=== PATIENT | male | born 1980 | race American Indian/Alaskan Native ===

== ENCOUNTER 2016-12-19 16:21 | Emergency (ER) | payer SELFPAY ==
[2016-12-19] MEDS ORDERED: MOTRIN PO ONE (19:04)
[2016-12-19] MEDS ORDERED: XYLOCAINE 1% 20 mL INFILTRATI ONE (19:04)
--- NOTE | 2016-12-19 19:16 | Emergency Department Report ---
ED Extremity Problem HPI - General Chief complaint: Extremity Injury, Upper Stated complaint: RIGHT LITTLE FINGER INJURY Time Seen by Provider: 12/19/16 18:57 Source: patient Mode of arrival: Ambulatory Limitations: No Limitations - History of Present Illness Initial comments: PT c/o R 5th finger injury. PT states the injury occurred [employer]. PT stats he was playing basketball. PT states his finger is bent and he can not move it. PT states he did not have time to take anything for the pain. PT states his pain is 10/10 MD Complaint: joint paint -: Sudden, hour(s) Location: right, upper extremity (5th finger ) History of Same: No Severity scale (0 -10): 10 Quality: constant Consistency: constant Improves with: nothing Worsens with: palpation Associated Symptoms: denies other symptoms - Related Data Previous Rx's Medication Instructions Recorded Last Taken Type Acetaminophen/Codeine [Tylenol #3] 1 tab PO Q6H PRN #12 tab 12/19/16 Unknown Rx Ibuprofen [Motrin] 600 mg PO Q8H PRN #15 tablet 12/19/16 Unknown Rx Allergies Allergy/AdvReac Type Severity Reaction Status Date / Time No Known Allergies Allergy Verified 12/19/16 18:03 ED Review of Systems ROS: Stated complaint: RIGHT LITTLE FINGER INJURY Other details as noted in HPI Comment: All other systems reviewed and negative Constitutional: denies: fever Cardiovascular: denies: chest pain Gastrointestinal: denies: abdominal pain, nausea, vomiting Musculoskeletal: as per HPI Neurological: denies: headache ED Past Medical Hx - Past Medical History Previous Medical History?: No - Surgical History Past Surgical History?: No - Social History Smoking Status: Never Smoker Substance Use Type: None - Medications Home Medications: Home Medications Medication Instructions Recorded Confirmed Last Taken Type Acetaminophen/Codeine [Tylenol #3] 1 tab PO Q6H PRN #12 tab 12/19/16 Unknown Rx Ibuprofen [Motrin] 600 mg PO Q8H PRN #15 tablet 12/19/16 Unknown Rx ED Physical Exam - General Limitations: No Limitations General appearance: alert, in no apparent distress - Head Head exam: Present: atraumatic, normocephalic, normal inspection - Eye Eye exam: Present: normal appearance, PERRL, EOMI. Absent: conjunctival injection - ENT ENT exam: Present: normal exam, mucous membranes moist, normal external ear exam - Neck Neck exam: Present: normal inspection, full ROM - Respiratory Respiratory exam: Present: normal lung sounds bilaterally. Absent: respiratory distress - Cardiovascular Cardiovascular Exam: Present: regular rate, normal rhythm, normal heart sounds - Extremities Exam Extremities exam: Present: tenderness. Absent: normal inspection, full ROM - Expanded Upper Extremity Exam Right Hand Wrist exam: Present: deformity (distal R 5th finger tip ), other (pt guarding R hand. ). Absent: normal inspection, full ROM (pt unable to extend R 5th finger ), amputation, nail avulsion, subungual hematoma Vascular: Absent: vascular compromise - Back Exam Back exam: Present: normal inspection, full ROM - Neurological Exam Neurological exam: Present: alert, oriented X3 - Psychiatric Psychiatric exam: Present: normal affect, normal mood - Skin Skin exam: Present: warm, dry, intact ED Course Vital Signs 12/19/16 12/19/16 18:04 21:34 Temperature 99.4 F Pulse Rate 73 72 Respiratory 16 18 Rate Blood Pressure 119/78 Blood Pressure 143/74 [Left] O2 Sat by Pulse 100 100 Oximetry - Reevaluation(s) Reevaluation #1: 12/19/16 19:29 due to pt's pain. digital block performed prior to evaluation of R 5th finger. - Nerve Block Consent Obtained: verbal consent Amount of anesthesia used: 3 (mls) Side: right Nerve Blocks: digital Procedure Successful: Yes Complications: none Patient Tolerated Procedure: well - Orthopedic Splinting/Casting Injury #1 Side: right Upper Extremity Injury Location: finger (5th finger ) Upper Extremity Immobilizer: finger (other) (baseball splint placed on R 5th finger ) - Pulse Oximetry Interpretation Digit-Finger Initial Pulse Oximetry Readin Actions Taken: none ED Medical Decision Making - Differential Diagnosis fx, dislocation, contusion Critical Care Time: No Critical care attestation.: If time is entered above; I have spent that time in minutes in the direct care of this critically ill patient, excluding procedure time. ED Disposition Clinical Impression: Finger strain Injury of finger Qualifiers: Encounter type: initial encounter Laterality: right Qualified Code(s): S69.91XA - Unspecified injury of right wrist, hand and finger(s), initial encounter Disposition: TO HOME OR SELFCARE Is pt being admited?: No Does the pt Need Aspirin: No Condition: Stable Instructions: Trigger Finger (ED), Finger Sprain (ED) Additional Instructions: Wear your splint when up and active No driving or alcohol after taking Tylenol #3 for pain You likely damage the tendon that helps you extend your finger. You will need to follow up with an orthopedic surgeon. Prescriptions: Acetaminophen/Codeine [Tylenol #3] 1 tab PO Q6H PRN #12 tab PRN Reason: Pain , Severe (7-10) Ibuprofen [Motrin] 600 mg PO Q8H PRN #15 tablet PRN Reason: Pain Referrals: PRIMARY CARE, [Primary Care Provider] - 3-5 Days BRITTANY KIMBLE MD [Staff Physician] - 3-5 Days Forms: Work/School Release Form(ED)
--- NOTE | 2016-12-19 19:44 | XRay Report ---
FINAL REPORT EXAM: XR FINGER(S) 2+V RT HISTORY: finger contusion 5th digit TECHNIQUE: Right 5th finger three views PRIORS: None. FINDINGS: There is flexion deformity at the DIP joint. The PIP joint is unremarkable. No acute fracture is identified. No radiopaque foreign bodies are seen and no additional focal bony abnormalities are identified. IMPRESSION: Flexion deformity at the DIP joint suggestive of extensor tendon injury
[2016-12-19 21:35] VITALS: BP 143/74
== END 2016-12-19 21:35 | disposition home or self-care (01) ==
LOC: ED 16:21
DX: S66.316A Strain of extensor muscle, fascia and tendon of right little finger at wrist and hand level, initial encounter (principal); X58.XXXA Exposure to other specified factors, initial encounter; Y93.67 Activity, basketball; Y92.39 Other specified sports and athletic area as the place of occurrence of the external cause; Y99.8 Other external cause status

== ENCOUNTER 2017-01-24 14:46 | Emergency (ER) | payer SELFPAY ==
--- NOTE | 2017-01-24 21:45 | Emergency Department Report ---
ED Back Pain/Injury HPI - General Chief Complaint: Back Pain/Injury Stated Complaint: BACK/FINGER PAIN Time Seen by Provider: 01/24/17 20:29 Source: patient Limitations: No Limitations - History of Present Illness Initial Comments: This is a 36-year-old male nontoxic, well nourished in appearance, no acute signs of distress presents to the ED complaining of low back pain intermittently for 6 years. Patient is also complaining of pain to his right fifth digit finger which was diagnosed on 12/19/2016 with a finger strain has been provided a finger splin. Patient is requests for new finger splint because he stated the finger splinted is tender to much and is not working. Patient denies any trauma to the finger or the back. Patient describes back pain as aching with level of 7 out of 10 and describes it shooting down the bilateral extremities intermittently. Patient denies any trauma to the finger or back. Patient denies any chest pain, shortness of breath, numbness, tingling , fever, chills, nausea, vomiting, dysuria, polyuria, hematuria, abdominal pain. Patient denies any allergies. Denies past medical history. Patient denies follow up with a orthopedic doctor as he was recommended to. MD Complaint: back pain -: Gradual, year(s) Similar Symptoms Previously: Yes Radiation: left leg, right leg Severity: mild Severity scale (0 -10): 8 Quality: aching Consistency: intermittent Improves With: none Worsens With: none Associated Symptoms: denies other symptoms. denies: confusion, weakness, chest pain, numbness, difficulty walking, cough, difficulty urinating, diaphoresis, incontinence, fever/chills, constipation, headaches, abdominal pain, loss of appetite, malaise, nausea/vomiting, rash, seizure, shortness of breath, syncope - Related Data Previous Rx's Medication Instructions Recorded Last Taken Type Acetaminophen/Codeine [Tylenol #3] 1 tab PO Q6H PRN #12 tab 12/19/16 Unknown Rx Ibuprofen [Motrin] 600 mg PO Q8H PRN #15 tablet 12/19/16 Unknown Rx Cyclobenzaprine [Flexeril] 10 mg PO BID PRN #10 tablet 01/24/17 Unknown Rx Ibuprofen [Motrin 600 MG tab] 600 mg PO Q8H PRN #30 tablet 01/24/17 Unknown Rx Allergies Allergy/AdvReac Type Severity Reaction Status Date / Time No Known Allergies Allergy Verified 12/19/16 18:03 ED Review of Systems ROS: Stated complaint: BACK/FINGER PAIN Other details as noted in HPI Constitutional: denies: chills, fever Eyes: denies: eye pain, eye discharge, vision change ENT: denies: ear pain, throat pain Respiratory: denies: cough, shortness of breath, wheezing Cardiovascular: denies: chest pain, palpitations Endocrine: no symptoms reported Gastrointestinal: denies: abdominal pain, nausea, diarrhea Genitourinary: denies: urgency, dysuria Musculoskeletal: denies: back pain, joint swelling, arthralgia Skin: denies: rash, lesions Neurological: denies: headache, weakness, paresthesias Psychiatric: denies: anxiety, depression Hematological/Lymphatic: denies: easy bleeding, easy bruising ED Past Medical Hx - Past Medical History Previous Medical History?: Yes Additional medical history: right fifth digit pain, back pain - Surgical History Past Surgical History?: No - Social History Smoking Status: Never Smoker Substance Use Type: Prescribed - Medications Home Medications: Home Medications Medication Instructions Recorded Confirmed Last Taken Type Acetaminophen/Codeine [Tylenol #3] 1 tab PO Q6H PRN #12 tab 12/19/16 Unknown Rx Ibuprofen [Motrin] 600 mg PO Q8H PRN #15 tablet 12/19/16 Unknown Rx Cyclobenzaprine [Flexeril] 10 mg PO BID PRN #10 tablet 01/24/17 Unknown Rx Ibuprofen [Motrin 600 MG tab] 600 mg PO Q8H PRN #30 tablet 01/24/17 Unknown Rx ED Physical Exam - General Limitations: No Limitations General appearance: alert, in no apparent distress - Head Head exam: Present: atraumatic, normocephalic, normal inspection - Eye Eye exam: Present: normal appearance, PERRL, EOMI. Absent: scleral icterus, conjunctival injection, nystagmus, periorbital swelling, periorbital tenderness Pupils: Present: normal accommodation - ENT ENT exam: Present: normal exam, normal orophraynx, mucous membranes moist, TM's normal bilaterally, normal external ear exam - Neck Neck exam: Present: normal inspection, full ROM. Absent: tenderness, meningismus, lymphadenopathy, thyromegaly - Respiratory Respiratory exam: Present: normal lung sounds bilaterally. Absent: respiratory distress, wheezes, rales, rhonchi, stridor, chest wall tenderness, accessory muscle use, decreased breath sounds, prolonged expiratory - Cardiovascular Cardiovascular Exam: Present: regular rate, normal rhythm, normal heart sounds. Absent: bradycardia, tachycardia, irregular rhythm, systolic murmur, diastolic murmur, rubs, gallop - GI/Abdominal GI/Abdominal exam: Present: soft, normal bowel sounds. Absent: distended, tenderness, guarding, rebound, rigid, diminished bowel sounds - Rectal Rectal exam: Present: deferred - Extremities Exam Extremities exam: Present: normal inspection, full ROM, normal capillary refill. Absent: tenderness, pedal edema, joint swelling, calf tenderness - Expanded Upper Extremity Exam Right General: Present: normal inspection Shoulder Exam: Present: normal inspection, full ROM Upper Arm exam: Present: normal inspection, full ROM Elbow exam: Present: normal inspection, full ROM Forearm Wrist exam: Present: normal inspection, full ROM Hand Wrist exam: Present: normal inspection, full ROM, deformity (right distal 5th finger tip). Absent: tenderness, swelling, abrasion, laceration, ecchymosis , crepidus, dislocation, erythema, amputation, nail avulsion, subungual hematoma Hand L/R Back: 1 - deformtiy Neuro motor exam: Present: wrist extension intact, thumb opposition intact, thumb IP flexion intact, thumb adduction intact, fingers 2-5 abduction intact Vascular: Present: vascular compromise, normal capillary refill, radial pulse, brachial pulse, ulnar pulse - Back Exam Back exam: Present: normal inspection, full ROM. Absent: tenderness, CVA tenderness (R), CVA tenderness (L), muscle spasm, paraspinal tenderness, vertebral tenderness, rash noted - Neurological Exam Neurological exam: Present: alert, oriented X3, CN II-XII intact, normal gait, reflexes normal - Psychiatric Psychiatric exam: Present: normal affect, normal mood - Skin Skin exam: Present: warm, dry, intact, normal color. Absent: rash ED Course Vital Signs 01/24/17 15:22 Temperature 98.5 F Pulse Rate 63 Respiratory 18 Rate Blood Pressure 144/93 O2 Sat by Pulse 100 Oximetry - Reevaluation(s) Reevaluation #1: 01/24/17 21:49 Patient is speaking in full sentences with no signs of distress noted. Reevaluation #2: 01/24/17 21:50 Negative UA. Critical care attestation.: If time is entered above; I have spent that time in minutes in the direct care of this critically ill patient, excluding procedure time. ED Disposition Clinical Impression: Finger strain Low back strain Qualifiers: Encounter type: initial encounter Qualified Code(s): S39.012A - Strain of muscle, fascia and tendon of lower back, initial encounter Disposition: TO HOME OR SELFCARE Is pt being admited?: No Does the pt Need Aspirin: No Condition: Stable Instructions: Low Back Strain (ED), Cyclobenzaprine (By mouth), Ibuprofen (By mouth), RICE Therapy (ED) Additional Instructions: Follow-up with primary care doctor/orthopedic doctor in 3-5 days or if symptoms worsen and continue return to emergency room as soon as possible possible. Take ibuprofen and Flexeril as prescribed. Do not operate heavy machinery while taking Flexeril due to sedation Prescriptions: Cyclobenzaprine [Flexeril] 10 mg PO BID PRN #10 tablet PRN Reason: Muscle Spasm Ibuprofen [Motrin 600 MG tab] 600 mg PO Q8H PRN #30 tablet PRN Reason: Pain Referrals: PRIMARY CARE, [Primary Care Provider] - 3-5 Days BRITTANY KIMBLE MD [Staff Physician] - 3-5 Days JUAN J HODGE MD [Staff Physician] - 3-5 Days [facility] [Outside] - 3-5 Days [facility] [Outside] - 3-5 Days
[2017-01-24 21:54] LABS: Bilirubin,Urine NEG (Negative); Blood,Urine MOD (Negative); Ketones,Urine NEG (Negative); Leukocyte Esterase,Urine NEG (Negative); Mucus,Urine FEW /HPF; Nitrite,Urine NEG (Negative); Protein,Urine <15 mg/dL mg/dL (Negative); Urobilinogen,Urine < 2.0 mg/dL (<2.0)
[2017-01-24 22:39] VITALS: BP 137/94
== END 2017-01-24 22:39 | disposition home or self-care (01) ==
LOC: ED 14:46
DX: S39.012A Strain of muscle, fascia and tendon of lower back, initial encounter (principal); S56.11 Strain of flexor muscle, fascia and tendon of other and unspecified finger at forearm level; X58.XXXA Exposure to other specified factors, initial encounter; Y93.89 Activity, other specified; Y92.89 Other specified places as the place of occurrence of the external cause; Y99.8 Other external cause status
CPT/HCPCS: 81001; 99283